=== PATIENT | female | born 1975 | race Two or more races ===

== ENCOUNTER 2022-10-21 14:32 | Emergency (ER) | payer OTHER ==
[~2022-10-21] VITALS: Ht 149.9 cm; Wt 68.9 kg
--- NOTE | 2022-10-21 14:45 | NUR ---
c/o pain inurination x 1wk. isabel fever nor nausea and vomiting noted.pain scale 10/10. pt on bed comfortably, changed to gown, attached to monitors, not in cr distress. alert and oriented.
--- NOTE | 2022-10-21 14:50 | NUR ---
URINE COLLECTED , SENT TO LAB
[2022-10-21 15:40] LABS: BILIRUBIN,URINE NEGATIVE (NEGATIVE); COLOR,URINE YELLOW (YELLOW); LEUKOCYTE ESTERASE ,URINE 2+ (NEGATIVE); NITRITE, URINE NEGATIVE (NEGATIVE); PROTEIN,URINE 1+ mg/dl (NEGATIVE); UGLUCOSE 3+ mg/dL (NEGATIVE); UROBILINOGEN,URINE 0.2 EU/dL (0.2)
[2022-10-21] MEDS ORDERED: SULF1TAB48 PO (15:51)
[2022-10-21] MEDS ORDERED: PHEN-705 PO (15:53)
[2022-10-21 15:58] LABS: RBC,URINE 51-80 /HPF (0-2); WBC,URINE 21-50 /HPF (0-3)
[2022-10-21 15:59] LABS: BACTERIA,URINE 3+ /HPF (None Seen); SQUAMOUS EPITHELIAL CELL,UR 0-2 /HPF (None Seen)
[2022-10-21 16:03] VITALS: BP 148/74; TEMP 97.9; O2SAT 97
--- NOTE | 2022-10-21 16:03 | NUR ---
Patient discharged to home in stable condition. Written and verbal after care instructions given. Patient verbalizes understanding of instruction.
== END 2022-10-21 16:03 | disposition home or self-care (01) ==
LOC: ER 14:36
DX: N39.0 Urinary tract infection, site not specified (principal); I10 Essential (primary) hypertension; E11.9 Type 2 diabetes mellitus without complications; Z88.0 Allergy status to penicillin
CPT/HCPCS: 81001; 84703-TC; 87086-TC